=== PATIENT | male | born 1980 | race Caucasian/White ===

== ENCOUNTER 2017-05-23 05:26 | Emergency (ER) | payer MEDICARE, MEDICAID ==
[~2017-05-23] VITALS: Ht 180.3 cm; Wt 99.0 kg
[~2017-05-23 05:26] MED LIST: ENALAPRIL; FOLI0.8T19; SEVE800T
[2017-05-23] MEDS ORDERED: HYDROCODONE/ACETAMINOPHEN 5/325MG TABLET PO ONE (06:30)
[2017-05-23 06:45] LABS: EOSINOPHILS % 1.9 % (0.0-5.0); HEMATOCRIT. 40.3 % (42.0-52.0); HEMOGLOBIN. 13.6 g/dL (14.0-18.0); LYMPHOCYTES % 32.9 % (20.0-50.0); MEAN CORPUSCULAR HEMOGLOBIN 34.9 pg (28.0-32.0); MEAN CORPUSCULAR VOLUME 103.2 fL (80.0-94.0); MEAN PLATELET VOLUME 8.6 fl (7.4-10.4); MONOCYTES % 8.8 % (2.0-8.0); NEUTROPHILS % 55.4 % (40.0-76.0); PLATELET 138 x1000/uL (130-400); RED BLOOD CELL COUNT 3.91 mill/uL (4.7-6.1); RED CELL DISTRIBUTION WIDTH 15.2 % (11.6-14.6)
[2017-05-23 06:50] LABS: CARBON DIOXIDE 30 mEq/L (21-32); CHLORIDE 97 mEq/L (98-107); PHOSPHORUS 5.1 mg/dL (2.5-4.9); TROPONIN I < 0.02 ng/mL (0.00-0.04)
[2017-05-23 06:55] LABS: PARTIAL THROMBOPLASTIN TIME 27.7 sec (24.0-34.0); PROTHROMBIN TIME 10.8 sec
[2017-05-23 08:18] VITALS: BP 106/62
== END 2017-05-23 08:18 | disposition home or self-care (01) ==
LOC: ER 05:27
DX: N18.9 Chronic kidney disease, unspecified (principal); N17.9 Acute kidney failure, unspecified; R26.89 Other abnormalities of gait and mobility; R06.02 Shortness of breath; R52 Pain, unspecified; Z99.2 Dependence on renal dialysis
CPT/HCPCS: 36415; 71010; 80048; 83735; 84100; 84484; 85025; 85610; 85730; 93005; 99285

== ENCOUNTER → 2018-01-09 | Outpatient (CLI) | payer MEDICARE, MEDICAID ==
[~2018-01-09] MED LIST changes: +REN800; -SEVE800T
== END | disposition home or self-care (01) ==
LOC: RAD 10:47
PROVIDERS: ATTEND Internal Medicine Nephrology
DX: N18.6 End stage renal disease (principal)
CPT/HCPCS: 71045